=== PATIENT | male | born 1970 | race Caucasian/White ===

== ENCOUNTER 2021-07-12 00:26 | Day surgery (SDC) | payer OTHER, SELFPAY ==
[2021-07-03 13:23] VITALS: BMI 29.2
[2021-07-12 06:10] VITALS: BP 133/94; PULSE 90; RESP 18; TEMP 36.2; O2SAT 100; BMI 29.3
[2021-07-12] MEDS: LACTATED RINGERS 1,000 ML 150 ML IV CONT (06:35)
--- NOTE | 2021-07-12 06:41 | P.PNAN_ITS ---
Anes - Initial Pre Proc Eval Procedure: Operation Date: 07/12/21 07:30 Proposed Procedures p Screening Colonoscopy - Óscar Lin MD Date/Time: 07/12/21 06:41 Surgeon: Óscar Lin MD Pre Op Diagnosis: neoplasm screening Patient Data Age: 50 Gender: M Height: 1.83 m Weight: 98.2 kg Last Vital Signs Temp 36.2 C L 07/12/21 06:10 Pulse 90 07/12/21 06:10 Resp 18 07/12/21 06:10 BP 133/94 H 07/12/21 06:10 Pulse Ox 100 07/12/21 06:10 Allergies Allergy/AdvReac Type Severity Reaction Status Date / Time Penicillins Allergy Severe Anaphylaxis Verified 07/12/21 06:22 Home Medications Medication Instructions Recorded Confirmed Type amitriptyline 25 mg tablet 25 mg PO QHS 03/07/21 07/12/21 History Centrum Men 1 cap PO DAILY 07/03/21 07/12/21 History vit C,U-Jj-frorj-lutein-zeaxan 1 cap PO DAILY 07/03/21 07/12/21 History [Ocuvite Lutein and Zeaxanthin] Patient hx anesthesia problems: none Family hx anesthesia problems: none PMFSH Family History Family History Father Family history of obesity Sibling Family history of obesity Mother Family history of osteoporosis Family history of hearing loss Other Family history of congestive heart failure Social History Social History Smoking status: Never smoker Alcohol intake: current Substance use: never Substance use type: does not use Living arrangements: with family Spiritual care concerns: No Anes - Eval Final PreProcedure Day of Procedure 07/12/21 06:41 Patient weight: overweight Heart: regular rate and rhythm Lungs: clear to auscultation Airway: Mallampati scale class II Neurological: alert and oriented Last oral intake: >/= 8 hours ASA classification: II Emergent: no Anesthetic plan: proceed Anesthesia type and monitoring: general GIVS and standard monitoring Informed Consent: The patient's anesthetic plan and its attendant risks and b enefits were discussed with the patient/family/POA. Questions were solicited and answers provided to the satisfaction of the patient/family/POA.
--- NOTE | 2021-07-12 07:26 | PM.HPGS ---
History of Present Illness History of Present Illness Consent: Risks, benefits, and alternatives have been discussed and questions answered. Patient agrees to proceed with procedure. Chief complaint: neoplasm screening Narrative: Jett Hutchinson is a 50 year old male here for first screening colonoscopy Review of Systems Constitutional: Constitutional: Denies headache(s) and Denies weakness Eyes: Eyes: Denies blurry vision ENT: Reports Normal hearing present, Denies headache(s) and Denies neck pain Cardiovascular: Cardiovascular: Denies chest pain and Denies dyspnea Respiratory: Respiratory: Denies dyspnea Gastrointestinal: Gastrointestinal: Reports no additional gastrointestinal complaints Genitourinary: Genitourinary: Denies dysuria Musculoskeletal: Musculoskeletal: Denies neck pain Integumentary/Breasts: Skin/Breast: Denies dry skin Neurologic: Reports Normal hearing present, Denies headache(s) and Denies weakness Psychiatric: Psychiatric: Denies anxiety Endocrine: Endocrine: Denies change in body appearance Hematologic/Lymphatic: Hematologic/Lymphatic: Denies easy bleeding Allergic/Immunologic: Allergic/Immunologic: Denies urticaria [facility] Past Medical History Medical History (Updated 07/12/21 @ 07:27 by Óscar Lin MD) Colon cancer screening Family History Family History Father Family history of obesity Sibling Family history of obesity Mother Family history of osteoporosis Family history of hearing loss Other Family history of congestive heart failure Social History Social History Smoking status: Never smoker Alcohol intake: current Substance use: never Substance use type: does not use Living arrangements: with family Spiritual care concerns: No Meds Home Medications and Allergies Home Medications Medication Instructions Recorded Confirmed Type amitriptyline 25 mg tablet 25 mg PO QHS 03/07/21 07/12/21 History Centrum Men 1 cap PO DAILY 07/03/21 07/12/21 History vit C,M-Gc-ikmyi-lutein-zeaxan 1 cap PO DAILY 07/03/21 07/12/21 History [Ocuvite Lutein and Zeaxanthin] Allergies Allergy/AdvReac Type Severity Reaction Status Date / Time Penicillins Allergy Severe Anaphylaxis Verified 07/12/21 06:22 Vital Signs Vital Signs - 24 hr 07/12/21 06:10 Temperature 97.2 F L Pulse Rate 90 Respiratory Rate 18 Blood Pressure 133/94 H Pulse Oximetry 100 Exam Const: General: comfortable and no acute distress HENMT: General nose exam: Normal nares present Eyes: General: appearance normal, both eyes and all related structures Neck: Neck: no JVD Resp: Auscultation: clear to auscultation bilaterally Cardio: Rate: regular rate Rhythm: regular rhythm GI: Inspection: non-distended GI Palp: Yes Soft to palpation Skin: General skin exam: normal color Neuro: General: gait normal Speech: normal speech Extrem: General: normal to inspection Psych: Mental Status: mental status grossly normal Assessment and Plan Assessment and plan (1) Colon cancer screening: Code(s): Z12.11 - Encounter for screening for malignant neoplasm of colon Status: Acute Assessment and Plan: colonoscopy
[2021-07-12 07:44] VITALS: BP 103/66; PULSE 79; RESP 15; O2SAT 97
[2021-07-12 07:54] VITALS: BP 106/73; PULSE 82; RESP 14; O2SAT 100
[2021-07-12 08:04] VITALS: BP 106/74; PULSE 72; RESP 12; O2SAT 100
== END 2021-07-12 08:11 | disposition home or self-care (01) ==
PROVIDERS: PCP Family Medicine; Visit Provider Internal Medicine Gastroenterology
PROC: 0DJD8ZZ Inspection of Lower Intestinal Tract, Via Natural or Artificial Opening Endoscopic (ICD-10-PCS; CPT 45378; principal; 2021-07-12 07:30)
DX: Z12.11 Encounter for screening for malignant neoplasm of colon (principal); K64.8 Other hemorrhoids
CPT/HCPCS: 45378; J2001; J2704; J7120

== ENCOUNTER 2023-08-29 08:33 | Emergency (ER) | payer OTHER, SELFPAY ==
[2023-08-29 08:41] VITALS: BP 127/88; PULSE 83; RESP 15; TEMP 36.5; O2SAT 99
[2023-08-29 09:13] LABS: Strep Group A RT-PCR NOT DETECTED (Negative)
--- NOTE | 2023-08-29 09:14 | ED.EAR ---
HPI - Ear Problem General Chief complaint: Ear Stated complaint: Ear infection Time Seen by Provider: 08/29/23 08:41 History of Present Illness HPI Narrative: This is a 52-year-old male, who presents emergency department with persistent bilateral ear pain, left greater than right. The patient states he was seen by his primary care doctor and prescribed antibiotics for ear infection, including change from cefuroxime to Levaquin without improvement he also complains of mild right ear pain that has not improved with eardrops. He has no other complaints at this time. Related Data Home Medications Medication Instructions Recorded Confirmed Centrum Men 1 cap PO DAILY 07/03/21 07/12/21 vit C,K-Xg-yhrkzi-lutein-zeaxan 60 1 cap PO DAILY 07/03/21 07/12/21 mg-13.5 mg-15 mg-2 mg-6 mg capsule (Ocuvite Lutein and Zeaxanthin) montelukast 10 mg tablet 10 mg PO DAILY 08/07/23 Allergies Allergy/AdvReac Type Severity Reaction Status Date / Time Penicillins Allergy Severe Anaphylaxis Verified 08/29/23 08:45 Review of Systems Review of Systems: CONSTITUTIONAL: Denies fever, chills, or sweats. EYES: Denies visual changes, redness, or discharge. ENT: Denies rhinorrhea, congestion, sore throat, or otalgia. CARDIOVASCULAR: Denies chest pain, palpitations, or edema. RESPIRATORY: Denies cough or dyspnea. GASTROINTESTINAL: Denies abdominal pain, nausea, vomiting, or diarrhea. GENITOURINARY: Denies dysuria or hematuria. SKIN: Denies rash or itching. MUSCULOSKELETAL: Denies back pain, joint pain, or myalgia. NEUROLOGIC: Denies headache, numbness, dizziness, or weakness. PSYCHIATRIC: Denies anxiety or depression. [facility] Past Medical History Medical History Allergic rhinitis Migraines PTSD (post-traumatic stress disorder) Family History Family History Father Family history of obesity Sibling Family history of obesity Mother Family history of osteoporosis Family history of hearing loss Heart disease Hypertension Other Family history of congestive heart failure Social History Social History Smoking status: Never smoker Alcohol intake: current Substance use: never Substance use type: does not use Lack of Transportation: No Lack of Food: Never True Current Housing: I Have Housing Concerned About Future Housing: No Difficulty Paying Gas/Electric Bills: No Difficulty Paying for Meds: No Currently Unemployed: No Education: Bachelor's Degree Difficulty w/ Childcare or Family Care: No Living arrangements: with family Occupation/Education: occupation Gender identity (if verbalized by the patient): Male Sexual Orientation (if Verbalized by the Patient): Straight or Heterosexual Spiritual care concerns: No Exam Narrative: GENERAL: Well-developed, well-nourished, and in no acute distress. HEAD: Normocephalic, atraumatic. EYES: PERRLA and EOMI. ENT: Nares clear, no rhinorrhea or epistaxis. Mucous membranes moist. Oropharynx without tonsillar hypertrophy exudate or other lesions. Left TM bulging with purulent fluid in the middle ear. Right TM not bulging, though there is erythema and a small amount of swelling in the external auditory meatus NECK: Supple. No adenopathy or masses. No carotid bruits or JVD CHEST: Clear to auscultation. No respiratory distress. No wheezes rales or rhonchi HEART: Regular rate and rhythm. No murmur heard. Normal peripheral pulses. NEURO: Alert and oriented x3. Moving all 4 limbs purposefully. PSYCH: Normal mood and affect. Course Course Emergency Course: 09:15 - Exam consistent with persistent otitis externa on the right and left otitis media. Patient tested negative for COVID and strep. Will change the patient's antibiotics to azithromycin and ofloxacin otic drops. I advised the
[2023-08-29 09:27] LABS: SARS-CoV-2 RNA PCR Negative (Negative)
== END 2023-08-29 09:37 | disposition home or self-care (01) ==
PROVIDERS: Emergency Provider Preventive Medicine Aerospace Medicine; PCP Family Medicine
DX: H60.90 Unspecified otitis externa, unspecified ear (principal); H66.90 Otitis media, unspecified, unspecified ear; Z20.822 Contact with and (suspected) exposure to COVID-19
CPT/HCPCS: 87635; 87651; 99283